=== PATIENT | male | born 1935 | race Caucasian/White ===

== ENCOUNTER 2018-06-20 09:20 | Emergency (ER) | payer MEDICAID ==
[~2018-06-20] VITALS: Ht 162.6 cm; Wt 64.0 kg
[2018-06-20 09:25] VITALS: Ht 162.6 cm; Wt 64.0 kg
[2018-06-20 11:46] LABS: BASOPHIL % 0.6 % (0-2); PLATELET COUNT 284 x10^3mcL (130-400); RED CELL DISTRIBUTION WIDTH 13.8 % (11.5-14.5)
[2018-06-20 12:00] LABS: CALCIUM 9.5 mg/dL (8.5-10.1); CARBON DIOXIDE 31.5 mmol/L (21-32); CHLORIDE SERUM 104 mmol/L (98-107); CREATININE SERUM 0.8 mg/dL (0.7-1.3); GLUCOSE SERUM 99 mg/dL (74-106); SODIUM SERUM 141 mmol/L (136-145)
[2018-06-20 12:05] LABS: ALKALINE PHOSPHATASE 48 U/L (46-116); ALT/SGPT 21 U/L (16-63); AST/SGOT 19 U/L (15-37); BILIRUBIN TOTAL 0.5 mg/dL (0.20-1.00); TOTAL PROTEIN, SERUM 7.9 g/dL (6.4-8.2)
[2018-06-20 15:18] VITALS: BP 177/105
== END 2018-06-20 15:18 | disposition home or self-care (01) ==
LOC: ED 09:20
PROVIDERS: Emergency Medicine
DX: M79.621 Pain in right upper arm (principal); M79.622 Pain in left upper arm; M54.12 Radiculopathy, cervical region
CPT/HCPCS: J1885